=== PATIENT | female | born 1940 | race Caucasian/White ===

== ENCOUNTER 2025-05-07 15:03 | Inpatient (IN) | payer MEDICARE ==
[2025-05-07] VITALS (7 sets, daily range): BP systolic 127–134; BP diastolic 73–109; O2SAT 88–100
[~2025-05-07] VITALS: Ht 152.4 cm; Wt 46.3 kg
[2025-05-07] MEDS: IV NS 0.9% 1,000 ML BAG IV ONE (16:20)
[2025-05-07] MEDS ORDERED: DEXTROSE 50%-WATER 50 ML DISP.SYRIN ONE (16:33)
[2025-05-07 16:37] LABS: ABG BASE EXCESS -18.7 mmol/L (-2.0-3.0); ABG OXYGEN SATURATION 91.4 % (94.0-98.0); ABG PCO2 19.8 mmHg (32.0-45.0); ABG PH 7.187 (7.350-7.450); ABG PO2 68.9 mmHg (83.0-108.0); ABG TOTAL HEMOGLOBIN 14.8 G/dL (12.0-16.0); FLOW, BLOOD GAS 8.00 L/min (0.00-30.00); FRACTIONATED INSPIRED OXYGEN 52.0 %; SITE, ABG RIGHT RADIAL
[2025-05-07 16:38] LABS: PLATELET COUNT (AUTO) 260 K/uL (150-450); RED BLOOD CELL COUNT(AUTO) 4.66 MIL/uL (4.0-5.2); RED CELL DISTRIBUTION WIDTH 13.5 % (11.5-15.0); WHITE BLOOD COUNT (AUTO) 6.6 K/uL (4.3-11.0)
[2025-05-07] MEDS: DEXTROSE 50%-WATER 50 ML DISP.SYRIN IV ONE (16:40)
[2025-05-07] MEDS ORDERED: SODIUM BICARBONATE SYR 50 MEQ/50 ML DISP.SYRIN ONE (16:42)
[2025-05-07] MEDS: SODIUM BICARBONATE SYR 50 MEQ/50 ML DISP.SYRIN IV ONE ×2 (16:45→16:48)
[2025-05-07 16:48] LABS: SERUM AMMONIA 5 umol/L (11-32)
[2025-05-07 16:53] LABS: ASPARTATE AMINOTRANSFERASE 95 U/L (15-37); CALCIUM, SERUM 8.7 mg/dL (8.5-10.1); CREATININE 1.7 mg/dL (0.6-1.3); SODIUM SERUM 129 mmol/L (136-145); TOTAL PROTEIN, SERUM 7.2 g/dL (6.4-8.2); UREA NITROGEN, BLOOD 29 mg/dL (7-18)
[2025-05-07 16:55] LABS: ALCOHOL, BLOOD < 3 mg/dL (0-10)
[2025-05-07] MEDS: ACETYLCYSTEINE IV ONE (17:00)
[2025-05-07] MEDS: D5W IV ONE (17:00)
[2025-05-07] MEDS ORDERED: IV PREMIX D5 1/2NS + KCL 1,000 ML IV ONE (17:21)
[2025-05-07] MEDS: IV PREMIX D5 1/2NS + KCL 1,000 ML IV ONE (17:30)
[2025-05-07 17:38] LABS: AMPHETAMINE, URINE NEGATIVE (NEGATIVE); BARBITURATE, URINE NEGATIVE (NEGATIVE); BENZODIAZEPINE, URINE POSITIVE (NEGATIVE); CANNABINOID, URINE NEGATIVE (NEGATIVE); COCCAINE, URINE NEGATIVE (NEGATIVE); OPIATE, URINE NEGATIVE (NEGATIVE)
[2025-05-07 17:47] LABS: APPEARANCE,URINE CLEAR (CLEAR); BLOOD, URINE NEGATIVE Ery/uL (NEGATIVE); LEUKOCYTE ESTERASE ,URINE NEGATIVE (NEGATIVE); NITRITE, URINE NEGATIVE (NEGATIVE); UGLUCOSE TRACE mg/dL (NEGATIVE)
[2025-05-07 17:51] LABS: BAND % (MANUAL) 20 % (0.0-5.0); LYMPHOCYTES % (MANUAL) 20 % (16-48); MONOCYTES % (MANUAL) 3 % (0-11.0); NEUTROPHILS % (MANUAL) 57 (42-76); PLATELET ESTIMATE ADEQU
[2025-05-07 17:53] LABS: ADD URINE CULTURE NO; URINE AMORPHOUS URATE Few /HPF (None Seen)
[2025-05-07 17:54] LABS: FINE GRANULAR CASTS,URINE Few /LPF (None Seen)
[2025-05-07] MEDS: D5W IV SCH ×2 (17:55→19:00)
[2025-05-07] MEDS: ACETYLCYSTEINE IV SCH ×2 (17:55→19:00)
[2025-05-07 17:58] LABS: INR 1.51 (0.91-1.10)
[2025-05-07] MEDS ORDERED: ONDANSETRON HCL/PF 4 MG/2 ML VIAL IVP PRN (18:30)
[2025-05-07] MEDS ORDERED: DOSING PER PHARMACY-ZOSYN IV 1 EA EA XX PRN (18:30)
[2025-05-07] MEDS ORDERED: ACETAMINOPHEN 325 MG TABLET PO PRN (18:30)
[2025-05-07] MEDS ORDERED: DOSE PER PHARMACY (MD SPECIFY MEDICATION) 1 EA IV PRN (18:30)
[2025-05-07 18:42] LABS: ABG BASE EXCESS -14.3 mmol/L (-2.0-3.0); ABG OXYGEN SATURATION 98.5 % (94.0-98.0); ABG PCO2 19.5 mmHg (32.0-45.0); ABG PH 7.309 (7.350-7.450); ABG PO2 117.0 mmHg (83.0-108.0); ABG TOTAL HEMOGLOBIN 13.7 G/dL (12.0-16.0); FLOW, BLOOD GAS 60.00 L/min (0.00-30.00); FRACTIONATED INSPIRED OXYGEN 100.0 %; SITE, ABG RIGHT BRACHIAL
[2025-05-07] MEDS: SODIUM BICARBONATE SYR 50 MEQ/50 ML DISP.SYRIN ONE (21:06)
[2025-05-07] MEDS: PIPERACILLIN /TAZOBACTAM 2.25 G in IV D5W 50 ML IV SCH (21:15)
[2025-05-07] MEDS: Sodium Bicarbonate 100 MEQ in IV D5W 1,000 ML IV PRN (21:17)
[2025-05-07] MEDS: HEPARIN SODIUM, PORCINE 5000 UNITS/1 ML VIAL SQ SCH (21:23)
[2025-05-07] MEDS: POTASSIUM CL. PREMIX PERIPHER. 50 ML IV SCH ×2 (21:31→23:07)
[2025-05-07 21:53] LABS: ASPARTATE AMINOTRANSFERASE 93.0 U/L (15-37); PHOSPHORUS 3.4 mg/dL (2.5-4.9); TOTAL PROTEIN, SERUM 5.4 g/dL (6.4-8.2)
[2025-05-07 22:05] LABS: LACTIC ACID 5.1 mmol/L (0.4-2.0)
[2025-05-07 22:16] LABS: CREATININE 1.6 mg/dL (0.6-1.3); UREA NITROGEN, BLOOD 25 mg/dL (7-18)
[2025-05-07 22:17] LABS: CALCIUM, SERUM 7.2 mg/dL (8.5-10.1); SODIUM SERUM 137 mmol/L (136-145)
[2025-05-07 22:20] LABS: ASPARTATE AMINOTRANSFERASE 92 U/L (15-37); TOTAL PROTEIN, SERUM 5.5 g/dL (6.4-8.2)
[2025-05-07] MEDS: POTASSIUM CL. PREMIX PERIPHER. 150 ML ONE (23:13)
[2025-05-08] VITALS (53 sets, daily range): BP systolic 75–158; BP diastolic 40–100; TEMP 97.4–98.6; O2SAT 81–99
[2025-05-08 03:17] LABS: ASPARTATE AMINOTRANSFERASE 128.0 U/L (15-37); PHOSPHORUS 2.3 mg/dL (2.5-4.9); TOTAL PROTEIN, SERUM 5.2 g/dL (6.4-8.2)
[2025-05-08] MEDS: SODIUM BICARBONATE SYR 50 MEQ/50 ML DISP.SYRIN ONE (05:27)
[2025-05-08] MEDS: POTASSIUM CL. PREMIX PERIPHER. 50 ML IV SCH ×2 (07:50→23:24)
[2025-05-08 08:46] LABS: ABG BASE EXCESS -5.1 mmol/L (-2.0-3.0); ABG OXYGEN SATURATION 92.3 % (94.0-98.0); ABG PCO2 25.4 mmHg (32.0-45.0); ABG PH 7.445 (7.350-7.450); ABG PO2 60.4 mmHg (83.0-108.0); ABG TOTAL HEMOGLOBIN 14.5 G/dL (12.0-16.0); FLOW, BLOOD GAS 60.00 L/min (0.00-30.00); FRACTIONATED INSPIRED OXYGEN 100.0 %; SITE, ABG RIGHT RADIAL
[2025-05-08 09:39] LABS: ASPARTATE AMINOTRANSFERASE 141.0 U/L (15-37); CALCIUM, SERUM 7.1 mg/dL (8.5-10.1); CREATININE 1.7 mg/dL (0.6-1.3); PHOSPHORUS 2.4 mg/dL (2.5-4.9); SODIUM SERUM 134.0 mmol/L (136-145); TOTAL PROTEIN, SERUM 4.9 g/dL (6.4-8.2); UREA NITROGEN, BLOOD 27.0 mg/dL (7-18)
[2025-05-08 10:11] LABS: IRON, SERUM 42.0 ug/dl (50-175)
[2025-05-08] MEDS: Magnesium 1GM/D5W 100ML PREMIX 100 ML IV SCH (11:02)
[2025-05-08 11:19] LABS: CALCIUM, SERUM 7.1 mg/dL (8.5-10.1); CREATININE 1.7 mg/dL (0.6-1.3); SODIUM SERUM 133.0 mmol/L (136-145); UREA NITROGEN, BLOOD 26.0 mg/dL (7-18)
[2025-05-08 11:29] LABS: ASPARTATE AMINOTRANSFERASE 163.0 U/L (15-37); PHOSPHORUS 2.6 mg/dL (2.5-4.9); TOTAL PROTEIN, SERUM 5.1 g/dL (6.4-8.2)
[2025-05-08 11:47] LABS: PLATELET COUNT (AUTO) 154 K/uL (150-450); RED BLOOD CELL COUNT(AUTO) 4.45 MIL/uL (4.0-5.2); RED CELL DISTRIBUTION WIDTH 13.4 % (11.5-15.0)
[2025-05-08 11:56] LABS: WHITE BLOOD COUNT (AUTO) 1.3 K/uL (4.3-11.0)
[2025-05-08 12:29] LABS: INR 4.13 (0.91-1.10)
[2025-05-08 12:33] LABS: BASOPHILS % (MANUAL) 0 % (0.0-2.0); EOSINOPHILS % (MANUAL) 0 % (0-4); LYMPHOCYTES % (MANUAL) 40 % (16-48); MONOCYTES % (MANUAL) 4 % (0-11.0); NEUTROPHILS % (MANUAL) 56 (42-76); PLATELET ESTIMATE ADEQUATE
[2025-05-08] MEDS: Sodium Bicarbonate 100 MEQ in IV D5W 1,000 ML IV SCH (14:14)
[2025-05-08 15:20] LABS: CALCIUM, SERUM 7.3 mg/dL (8.5-10.1); CREATININE 1.8 mg/dL (0.6-1.3); SODIUM SERUM 132.0 mmol/L (136-145); UREA NITROGEN, BLOOD 27.0 mg/dL (7-18)
[2025-05-08 15:23] LABS: CALCIUM, SERUM 7.1 mg/dL (8.5-10.1); CREATININE 1.8 mg/dL (0.6-1.3); SODIUM SERUM 132.0 mmol/L (136-145); UREA NITROGEN, BLOOD 26.0 mg/dL (7-18)
[2025-05-08 15:25] LABS: ASPARTATE AMINOTRANSFERASE 182.0 U/L (15-37); PHOSPHORUS 2.9 mg/dL (2.5-4.9); TOTAL PROTEIN, SERUM 4.7 g/dL (6.4-8.2)
[2025-05-08] MEDS: NOREPINEPHRINE 8 MG in IV NS 0.9% 242 ML IV PRN (15:26)
[2025-05-08 19:58] LABS: PLATELET COUNT (AUTO) 96 K/uL (150-450); RED BLOOD CELL COUNT(AUTO) 3.74 MIL/uL (4.0-5.2); RED CELL DISTRIBUTION WIDTH 13.1 % (11.5-15.0)
[2025-05-08 20:32] LABS: WHITE BLOOD COUNT (AUTO) 0.7 K/uL (4.3-11.0)
[2025-05-08 20:50] LABS: ASPARTATE AMINOTRANSFERASE 245.0 U/L (15-37); CALCIUM, SERUM 6.8 mg/dL (8.5-10.1); CREATININE 1.9 mg/dL (0.6-1.3); SODIUM SERUM 131.0 mmol/L (136-145); TOTAL PROTEIN, SERUM 4.6 g/dL (6.4-8.2); UREA NITROGEN, BLOOD 26.0 mg/dL (7-18)
[2025-05-08 21:37] LABS: LYMPHOCYTES % (MANUAL) 13 % (16-48); MONOCYTES % (MANUAL) 2 % (0-11.0); NEUTROPHILS % (MANUAL) 10 (42-76); PLATELET ESTIMATE DECREASED
[2025-05-09] VITALS (93 sets, daily range): BP systolic 62–129; BP diastolic 40–100; TEMP 97.1–97.8; O2SAT 62–97
[2025-05-09 00:11] LABS: PLATELET COUNT (AUTO) 94 K/uL (150-450); RED BLOOD CELL COUNT(AUTO) 3.71 MIL/uL (4.0-5.2); RED CELL DISTRIBUTION WIDTH 13.2 % (11.5-15.0)
[2025-05-09 00:13] LABS: CALCIUM, SERUM 6.8 mg/dL (8.5-10.1); CREATININE 1.8 mg/dL (0.6-1.3); SODIUM SERUM 131.0 mmol/L (136-145); UREA NITROGEN, BLOOD 28.0 mg/dL (7-18)
[2025-05-09 00:39] LABS: WHITE BLOOD COUNT (AUTO) 0.8 K/uL (4.3-11.0)
[2025-05-09 01:04] LABS: MONOCYTES % (MANUAL) 1 % (0-11.0); NEUTROPHILS % (MANUAL) 9 (42-76)
[2025-05-09 01:05] LABS: LYMPHOCYTES % (MANUAL) 15 % (16-48); PLATELET ESTIMATE DECREASED
[2025-05-09 06:52] LABS: INR 3.85 (0.91-1.10)
[2025-05-09 08:42] LABS: ABG BASE EXCESS -1.0 mmol/L (-2.0-3.0); ABG OXYGEN SATURATION 88.2 % (94.0-98.0); ABG PCO2 30.5 mmHg (32.0-45.0); ABG PH 7.472 (7.350-7.450); ABG PO2 52.8 mmHg (83.0-108.0); ABG TOTAL HEMOGLOBIN 12.3 G/dL (12.0-16.0); FRACTIONATED INSPIRED OXYGEN 100.0 %; SET RATE, BG 16.0; SITE, ABG RIGHT RADIAL
[2025-05-09] MEDS: Potassium Chloride 20 MEQ in IV D5/0.45 NACL 1,000 ML IV SCH (10:55)
[2025-05-09] MEDS ORDERED: ESOM40CA52 PO (13:55)
[2025-05-09] MEDS ORDERED: MINO50CA5 PO (13:55)
[2025-05-09] MEDS ORDERED: HYDR-3980 PO (13:55)
[2025-05-09] MEDS ORDERED: ESCI10TA PO (13:55)
[2025-05-09] MEDS ORDERED: LOSA1TAB36 MT (13:55)
[2025-05-09] MEDS ORDERED: DIAZ5TAB4 PO (13:55)
[2025-05-09] MEDS ORDERED: BUPR300T52 PO (13:55)
[2025-05-09] MEDS ORDERED: ZOLP5TAB8 PO (13:55)
[2025-05-09] MEDS: TBO-FILGRASTIM 300 MCG/0.5 ML SYRINGE SQ SCH (14:02)
[2025-05-09] MEDS: PHYTONADIONE INJ 10 MG/1 ML AMPUL SQ ONE (14:16)
[2025-05-09] MEDS: Thiamine 100 MG in IV D5W 50 ML IV SCH (14:38)
[2025-05-09 17:07] LABS: INR 3.68 (0.91-1.10)
[2025-05-09] MEDS: ACETYLCYSTEINE IV ONE (18:06)
[2025-05-09] MEDS: D5W IV ONE (18:06)
[2025-05-09 18:12] LABS: RHEUMATOID FACTOR SCREEN NEGATIVE (NEGATIVE)
[2025-05-09 18:35] LABS: CALCIUM, SERUM 6.7 mg/dL (8.5-10.1); CREATININE 2.2 mg/dL (0.6-1.3); SODIUM SERUM 131.0 mmol/L (136-145); UREA NITROGEN, BLOOD 33.0 mg/dL (7-18)
[2025-05-09 18:38] LABS: IRON, SERUM 61 ug/dl (50-175)
[2025-05-09] MEDS: D5W IV SCH (19:39)
[2025-05-09] MEDS: ACETYLCYSTEINE IV SCH (19:39)
[2025-05-09 21:47] LABS: CALCIUM, SERUM 6.9 mg/dL (8.5-10.1); CREATININE 2.3 mg/dL (0.6-1.3); SODIUM SERUM 131 mmol/L (136-145); TOTAL PROTEIN, SERUM 4.5 g/dL (6.4-8.2); UREA NITROGEN, BLOOD 34 mg/dL (7-18)
[2025-05-09 21:50] LABS: ASPARTATE AMINOTRANSFERASE > 1000 U/L (15-37)
[2025-05-09 23:19] LABS: HIV-1/2 ANTIBODY NON REACTIVE (NONREACTIVE)
[2025-05-10] VITALS (60 sets, daily range): BP systolic 83–164; BP diastolic 56–152; TEMP 97.5–97.8; O2SAT 42–98
[2025-05-10 01:22] LABS: AMPHETAMINE, URINE NEGATIVE (NEGATIVE); BARBITURATE, URINE NEGATIVE (NEGATIVE); BENZODIAZEPINE, URINE POSITIVE (NEGATIVE); CANNABINOID, URINE NEGATIVE (NEGATIVE); COCCAINE, URINE NEGATIVE (NEGATIVE); OPIATE, URINE NEGATIVE (NEGATIVE)
[2025-05-10 05:07] LABS: RED BLOOD CELL COUNT(AUTO) 3.18 MIL/uL (4.0-5.2); RED CELL DISTRIBUTION WIDTH 13.2 % (11.5-15.0)
[2025-05-10 05:10] LABS: ASPARTATE AMINOTRANSFERASE > 1000 U/L (15-37); CALCIUM, SERUM 6.8 mg/dL (8.5-10.1); CREATININE 2.3 mg/dL (0.6-1.3); PHOSPHORUS 2.9 mg/dL (2.5-4.9); SODIUM SERUM 134 mmol/L (136-145); TOTAL PROTEIN, SERUM 4.2 g/dL (6.4-8.2); UREA NITROGEN, BLOOD 37 mg/dL (7-18)
[2025-05-10 06:01] LABS: WHITE BLOOD COUNT (AUTO) 1.6 K/uL (4.3-11.0)
[2025-05-10 06:04] LABS: PLATELET COUNT (AUTO) 30 K/uL (150-450)
[2025-05-10 06:07] LABS: INR 2.68 (0.91-1.10)
[2025-05-10 06:07] LABS: HEPATITIS B SURFACE AB (QUAL) Non Reactive (.)
[2025-05-10 06:34] LABS: LYMPHOCYTES % (MANUAL) 10 % (16-48)
[2025-05-10 06:35] LABS: EOSINOPHILS % (MANUAL) 1 % (0-4); MONOCYTES % (MANUAL) 3 % (0-11.0); NEUTROPHILS % (MANUAL) 11 (42-76)
[2025-05-10 06:36] LABS: PLATELET ESTIMATE DECREASED
[2025-05-10 08:07] LABS: FOLIC ACID 11.8 ng/mL (>3.0); IMMUNOGLOBULIN A, SERUM 134 mg/dL (64-422); IMMUNOGLOBULIN M, SERUM 16 mg/dL (26-217)
[2025-05-10 09:07] LABS: FREE KAPPA LT CHAINS SERUM 35.2 mg/L (3.3-19.4); FREE LAMBDA LT CHAIN SERUM 14.3 mg/L (5.7-26.3); KAPPA/LAMBDA RATIO SERUM 2.46 (0.26-1.65)
[2025-05-10] MEDS: FUROSEMIDE 40 MG/4 ML VIAL IV ONE (09:43)
[2025-05-10] MEDS: POTASSIUM CL. PREMIX PERIPHER. 50 ML IV SCH (09:44)
[2025-05-10] MEDS: Magnesium 1GM/D5W 100ML PREMIX 100 ML IV SCH (10:58)
[2025-05-10] MEDS ORDERED: LORAZEPAM INJ 2 MG/ML VIAL IV PRN (12:00)
[2025-05-10] MEDS ORDERED: HYDROMORPHONE MDV 50 MG in IV D5W 225 ML IV PRN (12:30)
[2025-05-10 13:08] LABS: *ANA ANTI-CENTROMERE B AB <0.2 AI (0.0-0.9); *ANA ANTI-DNA(DS) AB, QN <1 IU/mL (0-9); *ANA ANTI-JO-1 <0.2 AI (0.0-0.9); *ANA ANTICHROMATIN ANTIBODY <0.2 AI (0.0-0.9); *ANA RNP ANTIBODIES <0.2 AI (0.0-0.9); *ANA SJOGREN'S ANTI-SS-A <0.2 AI (0.0-0.9); *ANA SJOGREN'S ANTI-SS-B <0.2 AI (0.0-0.9); *ANAANTI-SCLERODERMA-70 AB <0.2 AI (0.0-0.9); *ANASMITH AB <0.2 AI (0.0-0.9)
[2025-05-10] MEDS: D5W IV PRN (15:32)
[2025-05-10] MEDS: HYDROMORPHONE IV PRN (15:32)
[2025-05-10] MEDS: SCOPOLAMINE PATCH 1 MG/72HR TD SCH (15:36)
[2025-05-10 20:48] LABS: FIBRINOGEN ACTIVITY 378.0 Mg/dL (213-485)
[2025-05-10] MEDS ORDERED: KEY,NONCONTROL,TO KEEP IN PYXI 1 EA MC ONE (21:48)
[2025-05-13 04:06] LABS: *SPE A/G RATIO 1.2 (0.7-1.7); *SPE ALBUMIN 2.3 g/dL (2.9-4.4); *SPE ALPHA-1-GLOBULIN 0.4 g/dL (0.0-0.4); *SPE ALPHA-2-GLOBULIN 0.6 g/dL (0.4-1.0); *SPE BETA GLOBULIN 0.5 g/dL (0.7-1.3); *SPE GLOBULIN, TOTAL 1.9 g/dL (2.2-3.9); *SPE M-SPIKE Not Observed g/dL (Not Observed); *SPE PROTEIN TOTAL 4.2 g/dL (6.0-8.5); *SPEGAMMA GLOBULIN 0.5 g/dL (0.4-1.8)
== END 2025-05-10 20:00 | DRG 917 ==
LOC: ER 15:07 → ICU 18:43 → MED 05-10 19:26
PROVIDERS: ADMIT Nurse Practitioner Family; ATTEND Nurse Practitioner Family
PROC: 02HV33Z Insertion of Infusion Device into Superior Vena Cava, Percutaneous Approach (ICD-10-PCS; 2025-05-07)
PROC: B548ZZA Ultrasonography of Superior Vena Cava, Guidance (ICD-10-PCS; 2025-05-07)
PROC: 5A09457 Assistance with Respiratory Ventilation, 24-96 Consecutive Hours, Continuous Positive Airway Pressure (ICD-10-PCS; principal; 2025-05-08)
DX: T39.1X2A Poisoning by 4-Aminophenol derivatives, intentional self-harm, initial encounter (principal); A41.9 Sepsis, unspecified organism; G92.8 Other toxic encephalopathy; N17.0 Acute kidney failure with tubular necrosis; J69.0 Pneumonitis due to inhalation of food and vomit; J96.01 Acute respiratory failure with hypoxia; G92.9 Unspecified toxic encephalopathy; R65.21 Severe sepsis with septic shock; K72.00 Acute and subacute hepatic failure without coma; D65 Disseminated intravascular coagulation [defibrination syndrome]; E87.1 Hypo-osmolality and hyponatremia; E87.4 Mixed disorder of acid-base balance; D68.9 Coagulation defect, unspecified; D61.818 Other pancytopenia; Z51.5 Encounter for palliative care; Y92.009 Unspecified place in unspecified non-institutional (private) residence as the place of occurrence of the external cause; I12.9 Hypertensive chronic kidney disease with stage 1 through stage 4 chronic kidney disease, or unspecified chronic kidney disease; N18.9 Chronic kidney disease, unspecified; E86.0 Dehydration; E86.1 Hypovolemia; E87.6 Hypokalemia; Z66 Do not resuscitate; G89.4 Chronic pain syndrome; R73.9 Hyperglycemia, unspecified; R74.01 Elevation of levels of liver transaminase levels; F09 Unspecified mental disorder due to known physiological condition; T39.092A Poisoning by salicylates, intentional self-harm, initial encounter; T42.6X2A Poisoning by other antiepileptic and sedative-hypnotic drugs, intentional self-harm, initial encounter
CPT/HCPCS: 36415; 36600; 70450-TC; 71045-TC; 76700-TC; 80048-TC; 80053-TC; 80076-TC; 81001; 82140-TC; 82607-TC; 82728-TC; 82784; 82803-TC; 82962-TC; 83540-TC; 83605-TC; 83735-TC; 83935-TC; 84100-TC; 84155; 84165; 84443-TC; 84484-TC; 85027-TC; 85385-TC; 85396; 85610-TC; 85730-TC; 86225; 86235; 86334; 86431-TC; 86706; 86803; 87040-TC; 87081-TC; 87340; 87806; 94760-TC; 94799-TC; 99082-TC; A4223; A4623; G0378; G0480; J0132; J1171; J1442; J1644; J1938; J2543; J3411; J3430; J3475; J3480; J3490; J7030; J7040; J7050; J7060; J7070